=== PATIENT | female | born 1940 | race Caucasian/White ===

== ENCOUNTER → 2016-12-19 | Outpatient (CLI) | payer OTHER | LOC: FIMAGING 09:03 | PROVIDERS: ATTEND Internal Medicine | DX: Z12.31 Encounter for screening mammogram for malignant neoplasm of breast (principal); Z13.820 Encounter for screening for osteoporosis; M85.89 Other specified disorders of bone density and structure, multiple sites | CPT/HCPCS: G0202 ==

== ENCOUNTER → 2017-01-01 | Outpatient (CLI) | payer OTHER | LOC: FIMAGING 12:28 | PROVIDERS: ATTEND Internal Medicine | DX: R92.8 Other abnormal and inconclusive findings on diagnostic imaging of breast (principal) | CPT/HCPCS: G0206 ==

== ENCOUNTER → 2017-10-23 | Outpatient (CLI) | payer OTHER | LOC: FIMAGING 07:10 | PROVIDERS: ATTEND Internal Medicine | DX: I83.93 Asymptomatic varicose veins of bilateral lower extremities (principal) ==

== ENCOUNTER 2017-12-22 07:26 | Day surgery (SDC) | payer OTHER ==
[2017-12-22] MEDS ORDERED: ALTEPLASE 2 MG VIAL IVP PRN (07:33)
[2017-12-22] MEDS ORDERED: PROTAMINE SULFATE 50 MG/5 ML VIAL IVP PRN (07:33)
[2017-12-22] MEDS ORDERED: MIDAZOLAM 2 MG/2 ML VIAL IVP PRN (07:33)
[2017-12-22] MEDS ORDERED: MEPERIDINE 25 MG/ML SYR IVP PRN (07:33)
[2017-12-22] MEDS ORDERED: ONDANSETRON 4 MG/2 ML VIAL IVP ONE (07:33)
[2017-12-22] MEDS ORDERED: NS 1,000 ML IV ONE (07:33)
[2017-12-22] MEDS ORDERED: FLUMAZENIL 0.5 MG/5 ML MDV IVP PRN (07:33)
[2017-12-22] MEDS ORDERED: GLUCAGON HCL 1 MG VIAL IVP PRN (07:33)
[2017-12-22] MEDS ORDERED: ceFAZolin 2 GM/DEXTROSE 100 ML IV ONE (07:33)
[2017-12-22] MEDS ORDERED: fentaNYL 100 MCG/2 ML INJ IVP PRN (07:33)
[2017-12-22] MEDS ORDERED: NALOXONE HCL 0.4 MG/ML INJ IVP PRN (07:33)
[2017-12-22] MEDS ORDERED: HEPARIN 10,000 UNIT/10 ML MDV (1,000 UNIT/ML) IVP PRN (07:33)
[2017-12-22] MEDS ORDERED: fentaNYL 100 MCG/2 ML INJ ONE (07:49)
[2017-12-22] MEDS ORDERED: FLUMAZENIL 0.5 MG/5 ML MDV IVP ONE (07:49)
[2017-12-22] MEDS ORDERED: NALOXONE HCL 0.4 MG/ML INJ ONE (07:49)
[2017-12-22] MEDS ORDERED: MIDAZOLAM 2 MG/2 ML VIAL ONE (07:50)
[2017-12-22] MEDS ORDERED: SODIUM TETRADECYL SULFATE 3% 2 ML VIAL IV ONE (08:12)
[2017-12-22] MEDS ORDERED: LIDO/EPI 1% **for epidural** 30 ML SDV ONE (08:12)
[2017-12-22] MEDS ORDERED: CEFAZOLIN 2 GM/DEXTROSE/100 ML BAG IV ONE (08:15)
--- NOTE | 2017-12-22 08:48 | PDPROPOC ---
Sedation Plan of Care Sedation Plan of Care: vital signs stable, mental status noted, patient educated of risks, benefits, alternatives, patient can tolerate sedation ASA Classification: ASA 2 Planned drugs: fentanyl, midazolam Mallampati Score: Class 1 Mallampati Reference Image: Patient passed 3-3-2 rule?: Yes
--- NOTE | 2017-12-22 08:50 | PDGENHP ---
History & Physical Chief Complaint: LARGE LT LEG VARICOSE VEINS History of Present Illness: CRAMPS AND SWELLING AND ROPEY VARICOSE VEINS. Pertinent Past, Social, Family History: T & A, APPY, PARTIAL HYSTERECTOMY, TRIGGER FINGER, WISDOM TEETH, BREAST IMPLANTS. Relevant Physical Exam: LARGE ROPEY VARICOSE VEINS. Cardiorespiratory Assessment: RRR, CTA
[2017-12-22] MEDS ORDERED: HYDROCODONE/APAP 5/325 TAB PO PRN (10:31)
[2017-12-22] MEDS ORDERED: ONDANSETRON DISINTEGRATING 4 MG TAB PO PRN (10:31)
[2017-12-22] MEDS ORDERED: IBUPROFEN 200 MG TAB PO ONE (10:31)
[2017-12-22] MEDS ORDERED: ONDANSETRON 4 MG/2 ML VIAL IVP PRN (10:31)
[2017-12-22] MEDS ORDERED: NS 1,000 ML IV SCH (10:45)
--- NOTE | 2017-12-22 11:16 | PDRADPN ---
Radiology Procedure Note Date of Procedure: 12/22/17 Radiologist: Vania Ramos Anesthesia: IV Sedation Pre-op Diagnosis: LLE VARICOSE VEINS Post-op Diagnosis: SAME Indication: SWELLING Procedure: LLE LASER ABLATION, SCLEROTHERAPY, PHLEBECTOMY Finding(s): SEE REPORT Inf/Abcess present in the surg proc area at time of surgery?: No
[2017-12-22 15:22] VITALS: BP 129/68
== END 2017-12-22 15:10 | disposition home or self-care (01) ==
LOC: FIMAGING 07:26
PROVIDERS: ATTEND Radiology Diagnostic Radiology
PROC: 065Q3ZZ Destruction of Left Saphenous Vein, Percutaneous Approach (ICD-10-PCS; principal; 2017-12-22)
PROC: 3E033TZ Introduction of Destructive Agent into Peripheral Vein, Percutaneous Approach (ICD-10-PCS; principal; 2017-12-22)
PROC: 06DQ3ZZ Extraction of Left Saphenous Vein, Percutaneous Approach (ICD-10-PCS; principal; 2017-12-22)
DX: I83.812 Varicose veins of left lower extremity with pain (principal)
CPT/HCPCS: J0690; J2250; J2310; J3010

== ENCOUNTER 2017-12-23 07:20 | Day surgery (SDC) | payer OTHER ==
[2017-12-23] MEDS ORDERED: FLUMAZENIL 0.5 MG/5 ML MDV IVP PRN (07:40)
[2017-12-23] MEDS ORDERED: NS 1,000 ML IV ONE (07:40)
[2017-12-23] MEDS ORDERED: fentaNYL 100 MCG/2 ML INJ IVP PRN (07:40)
[2017-12-23] MEDS ORDERED: ONDANSETRON 4 MG/2 ML VIAL IVP ONE (07:40)
[2017-12-23] MEDS ORDERED: GLUCAGON HCL 1 MG VIAL IVP PRN (07:40)
[2017-12-23] MEDS ORDERED: MIDAZOLAM 2 MG/2 ML VIAL IVP PRN (07:40)
[2017-12-23] MEDS ORDERED: NALOXONE HCL 0.4 MG/ML INJ IVP PRN (07:40)
[2017-12-23] MEDS ORDERED: ceFAZolin 2 GM/DEXTROSE 100 ML IV ONE (07:40)
[2017-12-23] MEDS ORDERED: PROTAMINE SULFATE 50 MG/5 ML VIAL IVP PRN (07:40)
[2017-12-23] MEDS ORDERED: SODIUM TETRADECYL SULFATE 3% 2 ML VIAL IV ONE (07:49)
[2017-12-23] MEDS ORDERED: LIDO/EPI 1% **for epidural** 30 ML SDV ONE (07:49)
--- NOTE | 2017-12-23 09:38 | PDGENHP ---
History & Physical Chief Complaint: RLE VARICOSE VEINS History of Present Illness: SWELLING AND PAIN Pertinent Past, Social, Family History: PLEASE SEE PRIOR NOTE Relevant Physical Exam: LARGE ROPEY VARICOSE VEINS ANTERIOR THIGH, POSTERIOR CALF Cardiorespiratory Assessment: RRR, CTA
[2017-12-23] MEDS ORDERED: MIDAZOLAM 2 MG/2 ML VIAL ONE ×2 (10:02→10:59)
[2017-12-23] MEDS ORDERED: fentaNYL 100 MCG/2 ML INJ ONE ×2 (10:02→10:59)
[2017-12-23] MEDS ORDERED: IBUPROFEN 200 MG TAB PO ONE (11:34)
[2017-12-23] MEDS ORDERED: HYDROCODONE/APAP 5/325 TAB PO PRN (11:34)
[2017-12-23] MEDS ORDERED: ONDANSETRON DISINTEGRATING 4 MG TAB PO PRN (11:34)
[2017-12-23] MEDS ORDERED: ONDANSETRON 4 MG/2 ML VIAL IVP PRN (11:34)
[2017-12-23] MEDS ORDERED: NS 1,000 ML IV SCH (11:45)
--- NOTE | 2017-12-23 12:30 | PDRADPN ---
Radiology Procedure Note Date of Procedure: 12/23/17 Radiologist: Vania Ramos Anesthesia: IV Sedation
[2017-12-23 12:37] VITALS: BP 102/69
== END 2017-12-23 15:05 | disposition home or self-care (01) ==
LOC: FIMAGING 07:20
PROVIDERS: ATTEND Radiology Diagnostic Radiology
DX: I83.811 Varicose veins of right lower extremity with pain (principal); I83.891 Varicose veins of right lower extremity with other complications; R22.43 Localized swelling, mass and lump, lower limb, bilateral
CPT/HCPCS: J0690; J2250; J2310; J3010

== ENCOUNTER → 2018-01-02 | Outpatient (CLI) | payer OTHER | LOC: FIMAGING 08:40 | PROVIDERS: ATTEND Internal Medicine | DX: Z12.31 Encounter for screening mammogram for malignant neoplasm of breast (principal); Z80.3 Family history of malignant neoplasm of breast ==

== ENCOUNTER → 2018-02-17 | Outpatient (CLI) | payer OTHER | LOC: FIMAGING 15:43 | PROVIDERS: ATTEND Radiology Diagnostic Radiology | DX: Z09 Encounter for follow-up examination after completed treatment for conditions other than malignant neoplasm (principal) ==

== ENCOUNTER → 2018-05-07 | Outpatient (CLI) | payer OTHER | LOC: FIMAGING 07:12 | PROVIDERS: ATTEND Radiology Diagnostic Radiology | DX: Z09 Encounter for follow-up examination after completed treatment for conditions other than malignant neoplasm (principal); I83.91 Asymptomatic varicose veins of right lower extremity ==